=== PATIENT | female | born 1990 | race Hispanic/Latino ===

== ENCOUNTER 2019-01-20 10:31 | Emergency (ER) | payer MEDICAID, OTHER | END 2019-01-20 11:46 | disposition home or self-care (01) | LOC: EDH 10:31 | DX: H10.89 Other conjunctivitis (principal); H40.9 Unspecified glaucoma ==

== ENCOUNTER 2019-05-13 17:49 | Emergency (ER) | payer MEDICAID | END 2019-05-13 18:08 | disposition home or self-care (01) | LOC: EDH 17:49 | DX: R51 Headache (principal) | CPT/HCPCS: 99281 ==

== ENCOUNTER 2019-11-06 20:02 | Emergency (ER) | payer MEDICAID ==
[2019-11-06 20:30] LABS: APPEARANCE,URINE Clear (CLEAR); BILIRUBIN,URINE Negative (NEGATIVE); COLOR,URINE Yellow (YELLOW); GLUCOSE, URINE (UA) Negative (NEGATIVE); KETONES,URINE Negative (NEGATIVE); LEUKOCYTE ESTERASE ,URINE Negative (NEGATIVE); NITRATE,URINE Negative (NEGATIVE); OCCULT BLOOD,URINE Negative (NEGATIVE); PH,URINE 6.5 (5.0-8.0); PROTEIN,URINE Negative (NEGATIVE); UROBILINOGEN,URINE 0.2 mg/dL (0.2-1.0)
[2019-11-06 20:33] LABS: HCG,QUAL RESULT NEGATIVE (NEGATIVE)
[2019-11-06 20:41] LABS: BASOPHILS % (AUTO) 0.5 % (0.0-5.0); EOSINOPHILS % (AUTO) 0.9 % (0.0-8.0); HEMATOCRIT 43.5 % (36-48); LYMPHOCYTES % (AUTO) 39.2 % (21.0-51.0); MEAN CORPUSCULAR HEMOGLOBIN 30.9 pg (27.0-33.0); MEAN CORPUSCULAR HGB CONC 33.8 g/dL (32.0-36.0); MEAN CORPUSCULAR VOLUME 91.4 fL (79-99); MONOCYTES % (AUTO) 6.8 % (3.0-13.0); NEUTROPHILS % (AUTO) 52.3 % (40.0-77.0); PLATELET COUNT (AUTO) 297 K/uL (130-400); RED BLOOD CELL COUNT(AUTO) 4.76 MIL/uL (4.00-5.50); RED CELL DISTRIBUTION WIDTH 12.2 % (11.0-15.5); WHITE BLOOD COUNT (AUTO) 6.6 K/uL (4.8-10.8)
[2019-11-06 20:47] LABS: CREATININE 0.9 mg/dL (0.5-1.5); POTASSIUM 3.5 mmol/L (3.5-5.1)
[2019-11-06 20:52] LABS: ALBUMIN 4.3 g/dL (3.5-5.0); BILIRUBIN,TOTAL 0.2 mg/dL (0.2-1.0); TOTAL PROTEIN, SERUM 8.2 g/dL (6.0-8.3)
[2019-11-06] MEDS ORDERED: AZITHROMYCIN 250 MG TABLET PO ONE (23:10)
[2019-11-06] MEDS ORDERED: CEFTRIAXONE SODIUM 1 GM ONE (23:10)
[2019-11-06] MEDS ORDERED: LIDOCAINE HCL-MPF 1% 2ML VIAL ONE (23:10)
[2019-11-06] MEDS ORDERED: ONDANSETRON ODT 4 MG TAB ONE (23:11)
[2019-11-11 18:09] LABS: CHLAMYDIA DNA N.A.AMPLIFY Negative (Negative)
== END 2019-11-07 00:13 | disposition home or self-care (01) ==
LOC: EDH 20:02
DX: R10.2 Pelvic and perineal pain (principal); R10.31 Right lower quadrant pain; Z79.899 Other long term (current) drug therapy; Z98.890 Other specified postprocedural states
CPT/HCPCS: 36415; 76705; 76856; 80053; 81003; 81025; 85025; 87210; 87486; 87797; 96372; 99285; J0696; J3490

== ENCOUNTER 2019-12-28 10:16 | Emergency (ER) | payer MEDICAID ==
[2019-12-28] MEDS ORDERED: DiphenhydrAMINE HCL 50 MG/ML VIAL ONE (11:59)
[2019-12-28] MEDS ORDERED: KETOROLAC TROMETHAMINE 15MG/ML ONE (12:00)
[2019-12-28] MEDS ORDERED: PROCHLORPERAZINE EDISYLATE 10 MG/2 ML VIAL ONE (12:00)
[2019-12-28] MEDS ORDERED: SODIUM CHLORIDE 0.9% 1000ML 1,000 ML IV ONE (14:23)
== END 2019-12-28 14:47 | disposition home or self-care (01) ==
LOC: EDH 10:16
DX: G43.009 Migraine without aura, not intractable, without status migrainosus (principal)
CPT/HCPCS: 96361; 96374; 96375; 99284; J0780; J1200; J1885; J7030

== ENCOUNTER 2021-05-08 21:26 | Emergency (ER) | payer MEDICAID ==
[~2021-05-08] VITALS: Ht 167.6 cm; Wt 78.0 kg
[2021-05-08] MEDS ORDERED: SULF1TAB42 PO (21:58)
[2021-05-08] MEDS ORDERED: SULFAMETHOX-TMP DS 800/160 TAB PO ONE (22:00)
[2021-05-08] MEDS ORDERED: TETANUS/DIPHTHERIA TOXOID [ADULT] 0.5 ML VIAL IM ONE (22:00)
[2021-05-08 22:35] VITALS: BP 129/73
== END 2021-05-08 22:38 | disposition home or self-care (01) ==
LOC: EDH 21:26
DX: S99.922A Unspecified injury of left foot, initial encounter (principal); X58.XXXA Exposure to other specified factors, initial encounter; Y93.89 Activity, other specified; Y92.89 Other specified places as the place of occurrence of the external cause; Y99.8 Other external cause status
CPT/HCPCS: 90471; 90714

== ENCOUNTER 2021-12-14 05:50 | Observation (INO) | payer MEDICAID ==
[2021-12-13 13:23] LABS: APPEARANCE,URINE CLEAR (CLEAR); BILIRUBIN,URINE NEGATIVE (NEGATIVE); COLOR,URINE COLORLESS (YELLOW); GLUCOSE, URINE (UA) NEGATIVE (NEGATIVE); KETONES,URINE NEGATIVE (NEGATIVE); LEUKOCYTE ESTERASE ,URINE NEGATIVE Leu/uL (NEGATIVE); NITRATE,URINE NEGATIVE (NEGATIVE); OCCULT BLOOD,URINE NEGATIVE (NEGATIVE); PROTEIN,URINE NEGATIVE (NEGATIVE); UROBILINOGEN,URINE 0.2 mg/dL (0.2-1.0)
[2021-12-13 13:28] LABS: BASOPHILS % (AUTO) 0.6 % (0.0-5.0); EOSINOPHILS % (AUTO) 0.9 % (0.0-8.0); MEAN CORPUSCULAR HEMOGLOBIN 30.2 pg (27.0-33.0); MEAN CORPUSCULAR HGB CONC 33.6 g/dL (32.0-36.0); MEAN CORPUSCULAR VOLUME 89.9 fL (79-99); MONOCYTES % (AUTO) 7.6 % (3.0-13.0); NEUTROPHILS % (AUTO) 58.6 % (40.0-77.0); PLATELET COUNT (AUTO) 316 K/uL (130-400); RED BLOOD CELL COUNT(AUTO) 4.67 MIL/uL (4.00-5.50); RED CELL DISTRIBUTION WIDTH 12.8 % (11.0-15.5); WHITE BLOOD COUNT (AUTO) 6.3 K/uL (4.8-10.8)
[2021-12-13 14:16] VITALS: BP 136/72
[~2021-12-14] VITALS: Ht 167.6 cm; Wt 76.8 kg
[2021-12-14] VITALS (16 sets, daily range): BP systolic 109–133; BP diastolic 57–80
[~2021-12-14 05:50] MED LIST: BRIM5DRO OS; BRIM5DRO21 OS; FAMO20TA8 PO; LATA7.5D OS; PRED5DRO25 OS
[2021-12-14] MEDS ORDERED: CEFAZOLIN SODIUM 1 GM VIAL ONE (06:49)
[2021-12-14] MEDS ORDERED: LACTATED RINGERS 1000ML 1,000 ML IV ONE (06:49)
[2021-12-14] MEDS ORDERED: ACET-2743 PO (07:26)
[2021-12-14] MEDS ORDERED: MORPHINE PF 100MG/10ML AMP IV ONE (08:10)
[2021-12-14] MEDS ORDERED: MIDAZOLAM HCL 1 MG/ML 2ML VIAL ONE (09:11)
[2021-12-14] MEDS ORDERED: PROPOFOL 10 MG/ML 20ML VIAL IV ONE (09:11)
[2021-12-14] MEDS ORDERED: FENTANYL CITRATE PF 50 MCG/1 ML 5ML AMP IV ONE (09:11)
[2021-12-14] MEDS ORDERED: ROCURONIUM 10MG/1ML SYR 10 MG/ML ML ONE (09:19)
[2021-12-14] MEDS ORDERED: MAGNESIUM SULFATE 4.06 MEQ/ML ***TPN USE ONLY IJ ONE (09:24)
[2021-12-14] MEDS ORDERED: KETAMINE 50MG/ML SYRINGE 50 MG/ML DISP.SYRIN IV ONE (09:24)
[2021-12-14] MEDS ORDERED: CEFAZOLIN SODIUM 2 GM VIAL IVP ONE (10:00)
[2021-12-14] MEDS ORDERED: EPHEDRINE SULFATE 50 MG/ML AMPULE ONE (10:29)
[2021-12-14] MEDS ORDERED: GLYCOPYRROLATE 1 MG/5 ML SYRINGE ONE (10:30)
[2021-12-14] MEDS ORDERED: KETOROLAC 30MG VIAL (30MG/ML) ONE (11:43)
[2021-12-14] MEDS ORDERED: FENTANYL CITRATE PF 50 MCG/1 ML 2ML VIAL ONE (11:44)
[2021-12-14] MEDS ORDERED: MEPERIDINE-PF 25 MG/ML SYG ONE ×2 (12:08→12:18)
[2021-12-14] MEDS ORDERED: IBUPROFEN 600 MG TABLET PO PRN (13:00)
[2021-12-14] MEDS ORDERED: PROMETHAZINE HCL 25 MG/ML 1ML AMPULE IM PRN (13:00)
[2021-12-14] MEDS ORDERED: ONDANSETRON 4MG INJ IVP PRN (13:00)
[2021-12-14] MEDS ORDERED: BISACODYL 10 MG SUPP.RECT RC PRN (13:00)
[2021-12-14] MEDS ORDERED: ACETAMINOPHEN WITH CODEINE 1 TAB TAB PO PRN (13:00)
[2021-12-14] MEDS: PROMETHAZINE HCL 25 MG/ML 1ML AMPULE IM PRN ×2 (13:14→23:10)
[2021-12-14] MEDS: MEPERIDINE-PF 75 MG/ML SYG IM PRN ×3 (13:15→23:11)
[2021-12-14] MEDS: DEXTROSE 5 %-0.45 % NACL 1,000 ML IV PRN ×2 (13:15→21:25)
[2021-12-14] MEDS: DOCUSATE SODIUM 100 MG CAP PO PRN (20:17)
[2021-12-14] MEDS: NITROFURANTOIN MONOHYD/M-CRYST 100 MG CAPSULE PO SCH (20:17)
[2021-12-14] MEDS: SIMETHICONE 80 MG TAB.CHEW PO PRN (20:17)
[2021-12-15] VITALS (7 sets, daily range): BP systolic 109–140; BP diastolic 63–79
[2021-12-15] MEDS: DEXTROSE 5 %-0.45 % NACL 1,000 ML IV PRN (05:16)
[2021-12-15 05:39] LABS: HEMATOCRIT 37.9 % (36-48); MEAN CORPUSCULAR HEMOGLOBIN 30.4 pg (27.0-33.0); MEAN CORPUSCULAR HGB CONC 33.8 g/dL (32.0-36.0); RED BLOOD CELL COUNT(AUTO) 4.21 MIL/uL (4.00-5.50); RED CELL DISTRIBUTION WIDTH 12.6 % (11.0-15.5); WHITE BLOOD COUNT (AUTO) 12.6 K/uL (4.8-10.8)
[2021-12-15] MEDS ORDERED: HYDROCODONE/ACETAMINOPHEN 5/325 MG TAB PO PRN (06:00)
[2021-12-15] MEDS ORDERED: ACETAMINOPHEN WITH CODEINE 1 TAB TAB PO PRN (06:00)
[2021-12-15] MEDS: DOCUSATE SODIUM 100 MG CAP PO PRN ×2 (09:03→21:07)
[2021-12-15] MEDS: NITROFURANTOIN MONOHYD/M-CRYST 100 MG CAPSULE PO SCH ×2 (09:03→21:07)
[2021-12-15] MEDS: IBUPROFEN 800 MG TAB PO PRN ×2 (09:03→16:55)
[2021-12-15] MEDS: SIMETHICONE 80 MG TAB.CHEW PO PRN ×2 (09:03→21:07)
[2021-12-16 02:44] VITALS: BP 119/72
[2021-12-16 07:50] VITALS: BP 126/74
[2021-12-16] MEDS: DOCUSATE SODIUM 100 MG CAP PO PRN (09:07)
[2021-12-16] MEDS: NITROFURANTOIN MONOHYD/M-CRYST 100 MG CAPSULE PO SCH (09:07)
[2021-12-16] MEDS: IBUPROFEN 800 MG TAB PO PRN (09:10)
[2021-12-16 12:00] VITALS: BP 129/67
[2021-12-16] MEDS ORDERED: NITR100C4 PO (12:54)
[2021-12-16] MEDS ORDERED: ACET-2079 PO (12:55)
[2021-12-16] MEDS ORDERED: DOCU-116 PO (12:56)
== END 2021-12-16 14:10 | disposition home or self-care (01) ==
LOC: DAH 05:50 → OBSVTOIN 05:51 → DAHIP 05:51 → INTOOBSV 05:51 → DAH 05:51 → WSH 12:50
PROVIDERS: ADMIT Obstetrics & Gynecology; ATTEND Obstetrics & Gynecology
DX: N81.4 Uterovaginal prolapse, unspecified (principal); Z20.822 Contact with and (suspected) exposure to COVID-19; N81.6 Rectocele; N39.3 Stress incontinence (female) (male); H40.9 Unspecified glaucoma; K46.9 Unspecified abdominal hernia without obstruction or gangrene; Z90.710 Acquired absence of both cervix and uterus; Z79.899 Other long term (current) drug therapy; Z98.890 Other specified postprocedural states
CPT/HCPCS: 84703; 85025; 86850; 86900; 86901; 87426; 81003; 36415 ×2; 58262; 57260; 57288; 96374; 96372; 88302; 88305; 85027; A6260; A4663; A4351; A4606; A4344; J7120; J3010 ×2; J0690 ×2; J3490 ×5; J2550 ×2; J2250; J2405; J1885; J3475; J2175 ×5; C1771; A4495; A4215; A4223; A4222; A4221; A4600; G0378 ×23; J2274; J2704

== ENCOUNTER 2023-04-03 20:27 | Inpatient (IN) | payer MEDICAID, OTHER ==
[~2023-04-03] VITALS: Ht 167.6 cm; Wt 71.1 kg
[~2023-04-03 20:27] MED LIST changes: +ACET-2079 PO; +ACET-2743 PO; +DOCU-116 PO; +NITR100C4 PO
[2023-04-03 22:06] LABS: APPEARANCE,URINE CLOUDY (CLEAR); BILIRUBIN,URINE NEGATIVE (NEGATIVE); COLOR,URINE LIGHT-YELLOW (YELLOW); GLUCOSE, URINE (UA) NEGATIVE (NEGATIVE); KETONES,URINE NEGATIVE (NEGATIVE); LEUKOCYTE ESTERASE ,URINE 500 Leu/uL (NEGATIVE); NITRATE,URINE NEGATIVE (NEGATIVE); OCCULT BLOOD,URINE LARGE (NEGATIVE); PROTEIN,URINE 10 mg/dL (NEGATIVE); UROBILINOGEN,URINE 0.2 mg/dL (0.2-1.0)
[2023-04-03 22:08] LABS: ADD UA MICROSCOPIC YES
[2023-04-03 22:12] LABS: BACTERIA,URINE FEW /HPF (None Seen); MUCUS,URINE RARE LPF (None Seen); OTHER CASTS, URINE 1 /LPF (None Seen); SQUAMOUS EPITHELIAL CELL,UR RARE /HPF (0-2); UNCLASSIFIED CRYSTAL 1 /HPF (None Seen); WBC,URINE >100 /HPF (0-1)
[2023-04-03 22:13] LABS: BASOPHILS # (AUTO) 0.04 K/uL (0.00-0.20); BASOPHILS % (AUTO) 0.2 % (0.0-5.0); HEMATOCRIT 38.6 % (36-48); IMMATURE GRANULOCYTE ABSOLUTE 0.08 K/uL (0-1); LYMPHOCYTES # (AUTO) 1.2 K/uL (1.0-4.8); LYMPHOCYTES % (AUTO) 6.6 % (21.0-51.0); MEAN CORPUSCULAR HEMOGLOBIN 31.1 pg (27.0-33.0); MEAN CORPUSCULAR HGB CONC 34.5 g/dL (32.0-36.0); MEAN CORPUSCULAR VOLUME 90.4 fL (79-99); MONOCYTES # (AUTO) 1.2 K/uL (0.1-1.0); MONOCYTES % (AUTO) 6.6 % (3.0-13.0); NEUTROPHILS # (AUTO) 15.3 K/uL (1.8-7.7); NEUTROPHILS % (AUTO) 86.2 % (40.0-77.0); PLATELET COUNT (AUTO) 311 K/uL (130-400); RED BLOOD CELL COUNT(AUTO) 4.27 MIL/uL (4.00-5.50); RED CELL DISTRIBUTION WIDTH 12.5 % (11.0-15.5); WHITE BLOOD COUNT (AUTO) 17.8 K/uL (4.8-10.8)
[2023-04-03 22:19] LABS: RAPID GROUP A STREP negative (NEGATIVE)
[2023-04-03 22:23] LABS: POTASSIUM 3.7 mmol/L (3.5-5.1)
[2023-04-03 22:26] LABS: SARS-CoV-2, RNA, NAAT NEGATIVE SARS CoV-2 (NEGATIVE)
[2023-04-03 22:27] LABS: ALBUMIN 3.9 g/dL (3.5-5.0); TOTAL PROTEIN, SERUM 8.4 g/dL (6.0-8.3)
[2023-04-03 22:29] LABS: INFLUENZA TYPE A Negative For Type A (NEGATIVE); INFLUENZA TYPE B Negative For Type B (NEGATIVE)
[2023-04-03] MEDS: 0.9%NACL 1000ML 1,000 ML IV ONE (23:12)
[2023-04-03] MEDS: ONDANSETRON 4MG INJ IVP ONE (23:12)
[2023-04-03] MEDS: FAMOTIDINE 20MG TAB PO ONE (23:12)
[2023-04-03] MEDS ORDERED: IOHEXOL 350 MG/ML 100ML INFUS..BTL IV ONE (23:36)
[2023-04-04] VITALS (13 sets, daily range): BP systolic 98–126; BP diastolic 58–71; PULSE 83–106; RESP 10–23; TEMP 99; O2SAT 100
[2023-04-04] MEDS: CEFTRIAXONE 1G VIAL IVPB ONE (00:52)
[2023-04-04] MEDS ORDERED: POTASSIUM CHLORIDE 20MEQ/100ML 100 ML IV PRN (01:00)
[2023-04-04] MEDS ORDERED: POTASSIUM CHLORIDE 10% ELIXIR 20 MEQ/15 ML UDCUP PO PRN (01:00)
[2023-04-04] MEDS ORDERED: MORPHINE 4 MG SYG IV PRN (01:00)
[2023-04-04] MEDS ORDERED: ONDANSETRON 4MG INJ IV PRN (01:00)
[2023-04-04] MEDS ORDERED: KCL 20 MEQ ERTAB PO PRN (01:00)
[2023-04-04] MEDS: LACTATED RINGERS IV ONE (01:15)
[2023-04-04] MEDS: ACETAMINOPHEN 325 MG TAB PO PRN ×2 (01:36→09:55)
[2023-04-04] MEDS: ZOSYN 3.375GM+NS 50ML 50 ML IV SCH (04:48)
[2023-04-04 06:15] LABS: BASOPHILS # (AUTO) 0.04 K/uL (0.00-0.20); BASOPHILS % (AUTO) 0.3 % (0.0-5.0); HEMATOCRIT 35.1 % (36-48); IMMATURE GRANULOCYTE ABSOLUTE 0.07 K/uL (0-1); LYMPHOCYTES % (AUTO) 6.9 % (21.0-51.0); MEAN CORPUSCULAR HEMOGLOBIN 31.2 pg (27.0-33.0); MEAN CORPUSCULAR HGB CONC 34.2 g/dL (32.0-36.0); MEAN CORPUSCULAR VOLUME 91.2 fL (79-99); MONOCYTES # (AUTO) 1.2 K/uL (0.1-1.0); MONOCYTES % (AUTO) 7.7 % (3.0-13.0); NEUTROPHILS # (AUTO) 12.7 K/uL (1.8-7.7); NEUTROPHILS % (AUTO) 84.6 % (40.0-77.0); PLATELET COUNT (AUTO) 241 K/uL (130-400); RED BLOOD CELL COUNT(AUTO) 3.85 MIL/uL (4.00-5.50); RED CELL DISTRIBUTION WIDTH 12.4 % (11.0-15.5)
[2023-04-04 06:30] LABS: PHOSPHORUS 2.8 mg/dL (2.5-4.9)
[2023-04-04 07:05] LABS: CREATININE 0.9 mg/dL (0.5-1.5); MAGNESIUM 1.6 mg/dL (1.80-2.40); POTASSIUM 3.8 mmol/L (3.5-5.1)
[2023-04-04] MEDS: FAMOTIDINE 20MG TAB PO SCH (09:53)
[2023-04-04] MEDS: MAGNESIUM 2GM PREMIX 50ML 50 ML IV PRN (09:55)
[2023-04-04] MEDS: ENOXAPARIN SODIUM 40 MG/0.4 ML SYRINGE SQ SCH (09:56)
[2023-04-04] MEDS: MORPHINE 2 MG SYG IV PRN (12:03)
[2023-04-05] VITALS (11 sets, daily range): BP systolic 102–114; BP diastolic 59–68; PULSE 75–100; RESP 16–18; O2SAT 98
[2023-04-05 04:40] LABS: BASOPHILS # (AUTO) 0.04 K/uL (0.00-0.20); BASOPHILS % (AUTO) 0.4 % (0.0-5.0); HEMATOCRIT 35.7 % (36-48); IMMATURE GRANULOCYTE ABSOLUTE 0.05 K/uL (0-1); LYMPHOCYTES # (AUTO) 1.4 K/uL (1.0-4.8); LYMPHOCYTES % (AUTO) 12.2 % (21.0-51.0); MEAN CORPUSCULAR HGB CONC 34.2 g/dL (32.0-36.0); MEAN CORPUSCULAR VOLUME 90.6 fL (79-99); MONOCYTES # (AUTO) 0.8 K/uL (0.1-1.0); MONOCYTES % (AUTO) 7.4 % (3.0-13.0); NEUTROPHILS # (AUTO) 8.9 K/uL (1.8-7.7); NEUTROPHILS % (AUTO) 79.6 % (40.0-77.0); PLATELET COUNT (AUTO) 263 K/uL (130-400); RED BLOOD CELL COUNT(AUTO) 3.94 MIL/uL (4.00-5.50); RED CELL DISTRIBUTION WIDTH 12.5 % (11.0-15.5); WHITE BLOOD COUNT (AUTO) 11.2 K/uL (4.8-10.8)
[2023-04-05 04:49] LABS: CREATININE 0.9 mg/dL (0.5-1.5); POTASSIUM 4.4 mmol/L (3.5-5.1)
[2023-04-05] MEDS: LACTULOSE 20 GM/30 ML UDCUP PO ONE (14:53)
[2023-04-06 03:30] VITALS: BP 110/69; PULSE 66; RESP 20
[2023-04-06 04:16] LABS: BASOPHILS # (AUTO) 0.04 K/uL (0.00-0.20); BASOPHILS % (AUTO) 0.6 % (0.0-5.0); EOSINOPHILS # (AUTO) 0.02 K/uL (0.00-0.70); EOSINOPHILS % (AUTO) 0.3 % (0.0-8.0); HEMATOCRIT 36.3 % (36-48); IMMATURE GRANULOCYTE ABSOLUTE 0.04 K/uL (0-1); LYMPHOCYTES # (AUTO) 1.4 K/uL (1.0-4.8); LYMPHOCYTES % (AUTO) 21.3 % (21.0-51.0); MEAN CORPUSCULAR HEMOGLOBIN 31.2 pg (27.0-33.0); MEAN CORPUSCULAR HGB CONC 33.9 g/dL (32.0-36.0); MEAN CORPUSCULAR VOLUME 92.1 fL (79-99); MONOCYTES # (AUTO) 0.8 K/uL (0.1-1.0); MONOCYTES % (AUTO) 12.5 % (3.0-13.0); NEUTROPHILS # (AUTO) 4.3 K/uL (1.8-7.7); NEUTROPHILS % (AUTO) 64.7 % (40.0-77.0); PLATELET COUNT (AUTO) 255 K/uL (130-400); RED BLOOD CELL COUNT(AUTO) 3.94 MIL/uL (4.00-5.50); RED CELL DISTRIBUTION WIDTH 12.3 % (11.0-15.5); WHITE BLOOD COUNT (AUTO) 6.6 K/uL (4.8-10.8)
[2023-04-06 04:34] LABS: ALBUMIN 2.9 g/dL (3.5-5.0); BILIRUBIN,TOTAL 0.4 mg/dL (0.2-1.0); CREATININE 0.8 mg/dL (0.5-1.5); POTASSIUM 4.1 mmol/L (3.5-5.1); TOTAL PROTEIN, SERUM 7.5 g/dL (6.0-8.3)
[2023-04-06 07:50] VITALS: O2SAT 98
[2023-04-06 08:00] VITALS: BP 122/65; PULSE 74; RESP 16
[2023-04-06] MEDS ORDERED: CEPH500B PO (08:52)
== END 2023-04-06 11:35 | disposition home or self-care (01) | DRG 872 ==
LOC: EDH 20:27 → EDHIP 20:28 → 2CV 04-04 07:59 → 4CH 04-05 06:27
PROVIDERS: ADMIT Internal Medicine; ATTEND Internal Medicine
DX: A41.9 Sepsis, unspecified organism (principal); N10 Acute pyelonephritis; B96.20 Unspecified Escherichia coli [E. coli] as the cause of diseases classified elsewhere; J45.909 Unspecified asthma, uncomplicated; Z51.5 Encounter for palliative care; Z20.822 Contact with and (suspected) exposure to COVID-19; Z59.7 Insufficient social insurance and welfare support; Z75.3 Unavailability and inaccessibility of health-care facilities; Z90.710 Acquired absence of both cervix and uterus
CPT/HCPCS: 36415; 74177; 80048; 80053; 81001; 83605; 83690; 83735; 84100; 84145; 85025; 87040; 87077; 87088; 87186; 87635; 87804; 87880; G0378; J0696; J1650; J2270; J2405; J2543; J3475; J7030; J7120; Q9967

== ENCOUNTER 2024-09-11 18:24 | Emergency (ER) | payer SELFPAY ==
[~2024-09-11] VITALS: Ht 167.6 cm; Wt 74.8 kg
[~2024-09-11 18:24] MED LIST changes: +CEPH500B PO
[2024-09-11 18:26] VITALS: BP 128/78; PULSE 68; RESP 18; TEMP 98.5
[2024-09-11] MEDS ORDERED: FIORIT PO (18:58)
--- NOTE | 2024-09-11 19:00 | ERN ---
ED Note History of Present Illness Stated Complaint: LEFT EYE PAIN Chief Complaint: Eye Problems Time Seen by MD: 18:27 Dictation: PATIENT IS A 33-YEAR-OLD FEMALE HERE WITH COMPLAINTS OF LEFT EYE PAIN WITH POSSIBLE INCREASED OCULAR PRESSURE AND A HISTORY OF AN OCULAR IMPLANT BY DR. PAN/FROM [facility] THREE YEARS AGO. SHE HAD A POSTTRAUMATIC GLAUCOMA AND HAD TO HAVE THE SURGERY. SHE STATES SHE HAS HAD NO PROBLEMS UNTIL LAST WEEK, HAS NOT BEEN SEEN AT [facility] AND WAS TOLD SHE HAD A MIGRAINE HEADACHE AND CONJUNCTIVITIS WAS TREATED WITH A MIGRAINE HEADACHE AND WITH EYE DROPS. STATES THE PAIN HAS CONTINUED IN HIS WORRIED THAT ARE OCULAR PRESSURE IS UP. STATES SHE HAS EMERGENCY MEDICATIONS AT HOME FOR OCULAR PRESSURE HOWEVER DID NOT TAKE HIM AND COULD NOT AFFORD TO GO TO SEE THE PRODUCTION GENERALIST AT THIS TIME BECAUSE NO INSURANCE. NO VISION CHANGES THAT THIS TIME, EOMS INTACT. SHE HAS ALSO TAKEN SUMATRIPTAN/FROM [place] FOR POSSIBLE MIGRAINE HEADACHE WHICH HAS BEEN OF NO BENEFIT AT ALL. Allergies: Coded Allergies: No Known Drug Allergies (Unverified Allergy, Unknown, 05/08/21) Home Meds Active Scripts Butalb/Acetaminophen/Caffeine (Fioricet) 50 Mg-325 Mg-40 Mg Tab, 2 TAB PO Q4HPRN for headache, #20 TAB 2 tablets by mouth q 4 hours prn headache, max 6 tabs/24 hrs Prov:DUSTIN MARROQUIN DRYING RACK CHANGER 09/11/24 Cephalexin Monohydrate (Keflex) 500 Mg Cap, 500 MG PO Q12H, #14 CAP Prov:DAJUAN ELDER AGPCNP 04/06/23 Reported Medications Docusate Sodium (Colace) 100 Mg Capsule, 100 MG PO DAILY PRN for CONSTIPATION, #30 CAP 12/16/21 Acetaminophen with Codeine (Acetaminophen-Cod #3 Tablet) 1 Each Tablet, 1 EACH PO Q4H PRN for PAIN LEVEL 4 TO 6, #20 TAB 12/16/21 Nitrofurantoin Monohyd/M-Cryst (Macrobid 100 mg Capsule) 100 Mg Capsule, 100 MG PO BID, #20 CAP 12/16/21 Acetaminophen (Tylenol Extra Strength) 500 Mg Tablet, 500 MG PO NEEDED, TAB 12/14/21 Latanoprost/Pf (Latanoprost 0.005% Eye Drop) 7.5 Ml Drops, 1 DROP OS HS, DROP 12/13/21 Prednisolone Acetate/Pf (Prednisolone Acet 1% Eye Drop) 5 Ml Drops.susp, 1 DROP OS BID, DROP 12/13/21 Brimonidine Tartrate/Timolol (Combigan Eye Drops) 5 Ml Drops, 1 DROP OS BID, DROP 12/13/21 Brimonidine Tartrate/Timolol (Brimonidine-Timolol 0.2%-0.5%) 5 Ml Drops, 1 DROP OS BID, DROP 12/13/21 Famotidine (Famotidine) 20 Mg Tablet, 20 MG PO AM, TAB 12/13/21 Past Medical History Past Medical History: Glaucoma Surgical History: Hysterectomy Social History: ETOH RN Note Reviewed/Agreed w/PFSH: Yes Review of System Dictation CONSTITUTIONAL: NEGATIVE EXCEPT FOR HPI HEAD/FACE: NEGATIVE EXCEPT FOR HPI EENT: NEGATIVE EXCEPT FOR HPI LEFT EYE PAIN RESPIRATORY: NEGATIVE EXCEPT FOR HPI GASTROINTESTINAL/ABDOMINAL: NEGATIVE EXCEPT FOR HPI GENITOURINARY: NEGATIVE EXCEPT FOR HPI MUSCULOSKELETAL: NEGATIVE EXCEPT FOR HPI INTEGUMENTARY: NEGATIVE EXCEPT FOR HPI NEUROLOGICAL/PSYCH: NEGATIVE EXCEPT FOR HPI HEMATOLOGIC/LYMPHATIC: NEGATIVE EXCEPT FOR HPI ALL SYSTEMS NEGATIVE, EXCEPT NOTED ABOVE. 13 POINT REVIEW OF SYSTEMS ASSESSED AND ALL NEGATIVE EXCEPT FOR ABOVE. Initial Vital Sign VS Vital Signs Date Time Temp Pulse Resp B/P (MAP) Pulse Ox O2 Delivery O2 Flow Rate FiO2 09/11/24 18:26 98.4 68 18 128/78 99 Room Air Physical Exam Dictation VITAL SIGNS REVIEWED GENERAL APPEARANCE: ALERT, ORIENTED X 3, MODERATE ACUTE DISTRESS, WELL DEVELOPED, NOURISHED. HEAD AND FACE: NON-TRAUMATIC. EYES: PERRL, PINK CONJUNCTIVAS, EYELID NO TRAUMA, ANTERIOR CHAMBER WITH ARCUS SENILIS. EOMS INTACT/PERRLA EARS: PINNAS INTACT AND NO SIGNS OF TRAUMA OR ERYTHEMA EAR CANALS CLEAR AND NO DISCHARGE TM NO ERYTHEMA NOSE: NO DISCHARGE, NO BLEEDING. OROPHARYNX: MOUTH NORMAL, TONGUE PINK, PHARYNX CLEAR,NO ERYTHEMA, TONSILS NO EXUDATES, NO ABSCESSES NOTED, MUCOUS MEMBRANE MOIST NECK: SUPPLE, NON-TENDER, NO THYROMEGALY, NO MASSES, NO JVD, NO BRUITS BREAST:DEFERRED CHEST:NO TENDERNESS, NO CREPITUS, NO PARADOXICAL MOVEMENT, NO RETRACTIONS LUNGS:CLEAR, WELL-VENTILATED, SYMMETRIC, NO RALES, NO WHEEZING, NO RHONCHI, NO STRIDOR, GOOD BREATH SOUNDS BILATERALLY HEART: REGULAR RATE, REGULAR RHYTHM, NO MURMUR, NO GALLOPS VASCULAR: NO PERIPHERAL EDEMA, ABDOMEN: SOFT, POSITIVE BOWEL SOUNDS, NONDISTENDED, NO GUARDING, NONTENDER, NO REBOUND, NO MASSES NO HEPATOMEGALY, NO SPLENOMEGALY, NO KRAUSE'S SIGN, NO HERNIAS. RECTAL: DEFERRED GENITAL: DEFERRED NEUROLOGICAL: NORMAL SPEECH, MOTOR FUNCTION INTACT, SENSORY FUNCTION INTACT MUSCULOSKELETAL: NECK NONTENDER, FULL RANGE OF MOTION, BACK NONTENDER, FULL RANGE OF MOTION, EXTREMITIES: NONTENDER, FULL RANGE OF MOTION SKIN: COLOR PINK, DRY, NO TURGOR, NO RASH, NO LACERATIONS, NO ABRASIONS, NO CONTUSIONS. LYMPHATIC: DEFERRED Results (Laboratory/Radiology) Labs Reviewed?: Yes ED Course ED Course Orders Procedure Category Date Status Time *Nursing CPOE 09/11/24 Transmitted Communication: 18:51 Acetaminophen With PHA 09/11/24 Complete Codeine (Tylenol-Code 19:00 Visual Acuity Test CPOE 09/11/24 Transmitted (Er) 18:59 Current Medications Medications (Trade) Dose Ordered Sig/Erick Route PRN Reason Start Time Stop Time Status Last Admin Dose Admin Acetaminophen/ Codeine Phosphate (TYLenol-coDEINE TAB) 2 tab ONCE ONCE PO 09/11/24 19:00 09/11/24 19:19 DC 09/11/24 19:06 Vital Signs Date Time Temp Pulse Resp B/P (MAP) Pulse Ox O2 Delivery O2 Flow Rate FiO2 09/11/24 18:26 98.4 68 18 128/78 99 Room Air 1855/PATIENT WAS STRONGLY ADVISED TO FOLLOW UP WITH DR. PAN TOMORROW. SHE WILL BE PRESCRIBED FIORICET FOR A TENSION HEADACHE NO VISION CHANGES Medical Decision Making MDM MEDICAL DECISION-MAKING BASED ON TONOMETER TO MEASURE LEFT EYE PRESSURE AND PAIN MANAGEMENT. PATIENT WAS STRONGLY ENCOURAGED TO FOLLOW UP WITH DR. MIMS AT [facility] TOMORROW. SHE W FIORICET CHECK FOR TENSION HEADACHE TOLD TO STOP SUMATRIPTAN Procedure Procedure Dictation: 184/OCULAR PRESSURE MEASURED AT 20/21 BY MICROBIOLOGY LABORATORY MANAGER USING TONOMETER. DX & DISP Disposition: Discharge Departure Impression: Primary Impression: Left eye pain Additional Impression: Tension headache Condition: Stable Scripts Butalb/Acetaminophen/Caffeine (Fioricet) 50 Mg-325 Mg-40 Mg Tab 2 TAB PO Q4HPRN for headache, #20 TAB 2 tablets by mouth q 4 hours prn headache, max 6 tabs/24 hrs Prov: DUSTIN MARROQUIN NP 09/11/24 Additional Instructions: Follow-up with primary care provider in 1 to 2 days. Take medications as directed here in the emergency room. Okay to continue home medications unless otherwise discussed during your visit in the emergency room today. Return to your nearest emergency room if symptoms worsen or if there is no improvement. Call 911 if you need immediate assistance. Take Tylenol or Motrin over -the-counter as needed and if no contraindications are present. Increase oral hydration. A wound culture or urine culture was ordered here in the emergency room department please follow-up with primary care provider and advise them to get repeat ports from our facility. If you had any [place] wrap/splints that were applied here, please do not remove them until you see your primary care or specialty. Strongly suggest following up with [facility] tomorrow for a left eye pain and headache. Take Fioricet as directed for headache. Referrals: LENKA RUVALCABA DO (PCP) Time of Disposition: 18:57 I have reviewed the case, and I agree with, Diagnosis and Plan DUSTIN MARROQUIN NP Sep 11, 2024 19:00 DARYN REA DO Sep 12, 2024 09:15
== END 2024-09-11 19:16 | disposition home or self-care (01) ==
LOC: EDH 18:24
DX: H57.12 Ocular pain, left eye (principal); G44.209 Tension-type headache, unspecified, not intractable; Z90.710 Acquired absence of both cervix and uterus; Z79.899 Other long term (current) drug therapy
CPT/HCPCS: 99283